=== PATIENT | male | born 1990 | race Caucasian/White ===

== ENCOUNTER 2021-04-30 18:16 | Emergency (ER) | payer SELFPAY ==
[~2021-04-30] VITALS: Ht 182.9 cm; Wt 95.4 kg
[2021-04-30 20:15] VITALS: BP 163/79
[2021-04-30] MEDS ORDERED: SULF1TAB23 PO (21:05)
[2021-04-30] MEDS ORDERED: PRED50TA PO (21:05)
[2021-04-30] MEDS ORDERED: FAMO20TA5 PO (21:05)
[2021-04-30] MEDS ORDERED: CETI10TA74 PO (21:05)
--- NOTE | 2021-04-30 21:05 | PHYS DOC ---
Past Medical History Past Surgical History: Other Additional Past Surgical Histo: Trach as and cyst removal Smoking Status: Never Smoker Alcohol Use: None General Adult EDM: Chief Complaint: INSECT BITE HPI: HPI: Patient is a 30 year old male with no significant medical history presented to the ED today with a bee sting to the left medial ankle that occurred yesterday. Patient states the area of redness has grown bigger. Patient denies any diffic ulty breathing, throat or tongue swelling. Denies any fever. Review of Systems: Review of Systems: Constitutional: Denies fever or chills. [] HENT: Denies nasal congestion or sore throat. [] Respiratory: Denies cough or shortness of breath. [] Cardiovascular: Denies chest pain or edema. [] GI: Denies abdominal pain, nausea, vomiting, bloody stools or diarrhea. [] Musculoskeletal: Denies back pain or joint pain. [] Integument: Reports insect bite to the left medial arm Neurologic: Denies headache, focal weakness or sensory changes. Psychiatric: Denies depression or anxiety. [] Heart Score: C/O Chest Pain: N/A Risk Factors: Risk Factors: DM, Current or recent (<one month) smoker, HTN, HLP, family history of CAD, obesity. Risk Scores: Score 0 - 3: 2.5% MACE over next 6 weeks - Discharge Home Score 4 - 6: 20.3% MACE over next 6 weeks - Admit for Clinical Observation Score 7 - 10: 72.7% MACE over next 6 weeks - Early Invasive Strategies Allergies: Allergies: Allergies Coded Allergies Type Severity Reaction Last Updated Verified No Known Drug Allergies 04/30/21 No Physical Exam: PE: Constitutional: Well developed, well nourished, no acute distress, non-toxic appearance. [] HENT: Normocephalic, atraumatic, bilateral external ears normal, oropharynx moist, no oral exudates, nose normal. [] Eyes: PERRLA, EOMI, conjunctiva normal, no discharge. [] Neck: Normal range of motion, no tenderness, supple, no stridor. [] Cardiovascular:Heart rate regular rhythm, no murmur [] Lungs & Thorax: Bilateral breath sounds clear to auscultation [] Abdomen: Bowel sounds normal, soft, no tenderness, no masses, no pulsatile masses. [] Skin: Left medial ankle with mild redness from the ankle to the mid diaz. There is a puncture wound noted on the left medial ankle. There is no drainage. There is no warmth of this redness. Full range of motion to the left ankle, foot and toes. +2 left pedal pulse. Back: No tenderness, no CVA tenderness. [] Extremities: No tenderness, no cyanosis, no clubbing, ROM intact, no edema. [] Neurologic: Alert and oriented X 3, normal motor function, normal sensory function, no focal deficits noted. [] Psychologic: Affect normal, judgement normal, mood normal. [] Current Patient Data: Vital Signs: Vital Signs Date Time Temp Pulse Resp B/P (MAP) Pulse Ox O2 Delivery O2 Flow Rate FiO2 04/30/21 20:15 98.6 89 18 163/79 98 Room Air 98.6 EKG: EKG: [] Radiology/Procedures: Radiology/Procedures: [] Course & Med Decision Making: Course & Med Decision Making Pertinent Labs and Imaging studies reviewed. (See chart for details) This is a 30-year-old male patient presented to the ED today with left ankle bee sting that occurred yesterday. Amount of collected reaction symptoms. Discharged on Cipro, Pepcid, prednisone and Bactrim. Tetanus is up-to-date. Provided return precautions. Natalie Disclaimer: Natalie Disclaimer: This electronic medical record was generated, in whole or in part, using a voice recognition dictation system. Departure Departure Impression: Primary Impression: Bee sting Qualified Codes: T63.441A - Toxic effect of venom of bees, accidental (unintentional), initial encounter Disposition: 01 HOME / SELF CARE / HOMELESS Condition: STABLE Referrals: NO PCP (PCP) Follow-up in 1 week Patient Instructions: Bee, Wasp, or Hornet Sting Additional Instructions: You were seen for bee sting to the left ankle. Please take the prescribed medications as ordered. Follow-up with your own doctor in 1 week. Come back to the ED at any point symptoms worsen Scripts Sulfamethoxazole/Trimethoprim (BACTRIM 400-80 MG TABLET) 1 Each Tablet 1 TAB PO BID for 10 Days, #20 TAB 0 Refills Prov: VERENICEAPADMINI LOOM TECHNICIAN 04/30/21 Cetirizine Hcl (ZYRTEC) 10 Mg Tablet 1 TAB PO DAILY, #7 TAB 0 Refills Prov: PADMINI KERR APRN 04/30/21 Famotidine (FAMOTIDINE) 20 Mg Tablet 20 MG PO DAILY, #7 TAB Prov: PADMINI KERR APRN 04/30/21 Prednisone (PREDNISONE) 50 Mg Tablet 1 TAB PO DAILY, #5 TAB Prov: PADMINI KERR APRN 04/30/21 PADMINI KERR APRN Apr 30, 2021 21:05
== END 2021-04-30 21:12 | disposition home or self-care (01) ==
LOC: ER 18:16
DX: T63.441A Toxic effect of venom of bees, accidental (unintentional), initial encounter (principal); Y92.89 Other specified places as the place of occurrence of the external cause
CPT/HCPCS: 99283